=== PATIENT | male | born 1965 | race American Indian/Alaskan Native ===

== ENCOUNTER 2017-03-15 19:01 | Emergency (ER) | payer OTHER ==
[2017-03-15 19:17] VITALS: BP 153/94
[2017-03-15 19:50] LABS: CHLORIDE,CL 100 mmol/L (101-111); SODIUM,NA 139 mmol/L (135-145)
--- NOTE | 2017-03-15 20:26 | EDM.PDOC ---
ED HPI GENERAL MEDICAL PROBLEM - General Chief Complaint: Respiratory Problem Stated Complaint: CHEST HURTING, HARD TO BREATH, [id number] Time Seen by Provider: 03/15/17 19:10 Source of Information: Reports: Patient History Limitations: Reports: No Limitations - History of Present Illness INITIAL COMMENTS - FREE TEXT/NARRATIVE: one week sore throat, cough congestion, hard to breathe at night, body aches non smoker, Fever, last ibuprofen this afternoon. Hx pneumonia in past and feels same. No asthma hx Duration: Getting Worse Location: Reports: Chest Severity: Moderate Associated Symptoms: Reports: Cough, cough w sputum, Fever/Chills, Headaches, Loss of Appetite. Denies: Nausea/Vomiting Generalized Pain Score (Numeric/FACES): 2 - Related Data Allergies Allergy/AdvReac Type Severity Reaction Status Date / Time No Known Allergies Allergy Verified 03/15/17 19:17 Home Meds: Home Meds Ibuprofen 400 mg PO Q6HR PRN 08/01/14 [History] amLODIPine [Norvasc] 1 tab PO DAILY 10/03/15 [History] Past Medical History HEENT History: Reports: Impaired Vision Other HEENT History: left eye has a black spot on the eye, states eye twiches for past bells palsey Cardiovascular History: Reports: Hypertension Respiratory History: Reports: None Gastrointestinal History: Reports: None Genitourinary History: Reports: None Musculoskeletal History: Reports: None Neurological History: Reports: None Psychiatric History: Reports: None Endocrine/Metabolic History: Reports: None Hematologic History: Reports: None Immunologic History: Reports: None Oncologic (Cancer) History: Reports: None Dermatologic History: Reports: None - Infectious Disease History Infectious Disease History: Reports: None - Past Surgical History Head Surgeries/Procedures: Reports: None Other Musculoskeletal Surgeries/Procedures:: broken right leg Social & Family History - Family History Family Medical History: Noncontributory - Tobacco Use Smoking Status *Q: Never Smoker Second Hand Smoke Exposure: No - Caffeine Use Caffeine Use: Reports: Coffee, Soda - Alcohol Use Days Per Week of Alcohol Use: 0 Date of Last Drink: 03/08/17 - Recreational Drug Use Recreational Drug Use: No ED ROS GENERAL - Review of Systems Review Of Systems: See Below Constitutional: Reports: Fever, Chills, Malaise, Decreased Appetite HEENT: Reports: Sinus Problem, Throat Pain Respiratory: Reports: Shortness of Breath (at night when lying down) Cardiovascular: Reports: Chest Pain (after coughing) Endocrine: Reports: Fatigue GI/Abdominal: Reports: No Symptoms : Reports: No Symptoms Musculoskeletal: Reports: Joint Pain, Muscle Pain, Other (generalized "body aches" unable to express if muscular or joint type pain). Denies: Joint Swelling Skin: Reports: No Symptoms Neurological: Reports: Headache (sinus pressure) ED EXAM, GENERAL - Physical Exam Exam: See Below Exam Limited By: No Limitations General Appearance: Alert, Moderate Distress Eye Exam: Bilateral Eye: PERRL Ears: Normal External Exam Throat/Mouth: Normal Lips, Other (enlarged tonsils, thick exudative patches bilaterlly. psterior pallate red). No: Normal Oropharynx Head: Atraumatic, Normocephalic Neck: Normal Inspection, Full Range of Motion Respiratory/Chest: No Respiratory Distress, Lungs Clear, Decreased Breath Sounds (bilateral bases) Cardiovascular: Normal Peripheral Pulses, Regular Rate, Rhythm GI/Abdominal: Normal Bowel Sounds, Soft, Non-Tender Back Exam: Normal Inspection, Full Range of Motion Extremities: Normal Inspection, Normal Range of Motion Neurological: Alert, Oriented, Normal Cognition Psychiatric: Flat Affect Skin Exam: Warm, Dry, Intact, Other (face flushed) Course - Vital Signs Last Recorded V/S: Last Vital Signs Temp 98.8 F 03/15/17 19:07 Pulse 81 03/15/17 19:07 Resp 20 03/15/17 19:07 BP 153/94 H 03/15/17 19:07 Pulse Ox 96 03/15/17 19:07 - Orders/Labs/Meds Orders: Active Orders 24 hr Category Date Time Status EKG 12 Lead [EKG Documentation Completion] [RC] URGENT Care 03/15/17 19:15 Active CULTURE STREP A CONFIRMATION [] Stat Lab 03/15/17 19:38 Results STREP SCRN A RAPID W CULT CONF [] Stat Lab 03/15/17 19:38 Results Labs: Laboratory Tests 03/15/17 03/15/17 03/15/17 Range/Units 19:25 19:25 19:25 WBC 11.1 H (5.0-10.0) 10^3/uL RBC 5.33 (4.6-6.2) 10^6/uL Hgb 17.1 (14.0-18.0) g/dL Hct 49.3 (40.0-54.0) % MCV 92.5 (80-100) fL MCH 32.1 (27.0-34.0) pg MCHC 34.7 (33.0-35.0) g/dL Plt Count 207 (150-450) 10^3/uL Neut % (Auto) 68.2 (42.2-75.2) % Lymph % (Auto) 17.0 L (20.5-50.1) % [place] % (Auto) 11.3 H (2-8) % Eos % (Auto) 3.4 H (1.0-3.0) % Baso % (Auto) 0.1 (0.0-1.0) % PT 10.3 (9.0-12.0) SEC INR 1.0 (0.9-1.2) Sodium 139 (135-145) mmol/L Potassium 4.5 (3.6-5.0) mmol/L Chloride 100 L (101-111) mmol/L Carbon Dioxide 29.0 (21.0-31.0) mmol/L Anion Gap 14.5 BUN 8 (7-18) mg/dL Creatinine 1.0 (0.6-1.3) mg/dL Est Cr Clr Drug Dosing 93.77 mL/min Estimated GFR (MDRD) > 60 BUN/Creatinine Ratio 8.00 Glucose 120 H (74-105) mg/dL Calcium 9.0 (8.4-10.2) mg/dl Total Bilirubin 0.9 (0.2-1.0) mg/dL AST 23 (10-42) IU/L ALT 25 (10-60) IU/L Alkaline Phosphatase 63 (42-121) IU/L Troponin I 0.02 (0.00-0.02) ng/ml B-Natriuretic Peptide 7 (0-100) pg/ml Total Protein 7.6 (6.7-8.2) g/dl Albumin 4.1 (3.2-5.5) g/dl Globulin 3.5 Albumin/Globulin Ratio 1.17 Amylase 27 L (28-100) U/L Lipase 17 L (22-51) U/L Meds: Medications Discontinued Medications Generic Name Dose Route Start Last Admin Trade Name Freq PRN Reason Stop Dose Admin Albuterol Confirm 03/15/17 20:52 03/15/17 20:57 Proventil Hfa Administered 03/15/17 20:53 Not Given Dose 6.7 gm INH .STK-MED ONE Amoxicillin/Clavulanate Potassium 1 tab 03/15/17 20:46 03/15/17 20:57 Augmentin 875 Mg/125 Mg PO 03/15/17 20:47 1 tab ONETIME ONE Administration - Radiology Interpretation Free Text/Narrative:: CXR negative Departure - Departure Time of Disposition: 20:24 Disposition: Home, Self-Care 01 Condition: Fair Clinical Impression: Pharyngitis Qualifiers: Pharyngitis/tonsillitis etiology: unspecified etiology Qualified Code(s): J02.9 - Acute pharyngitis, unspecified - Discharge Information Instructions: Upper Respiratory Infection, Adult, [id number] Referrals: Tom Weaver [Primary Care Provider] - Forms: ED Department Discharge Additional Instructions: albuterol inhaler 2 puffs every 4 hours as needed tesselon pearles 200mg every 8 hours as needed for cough increase fluid intake augmentin 875mg one twice daily for one week alternate tylenol and ibuprofen for fever/ discomfort Follow up next week if not improving, sooner if symptoms worsen - My Orders Last 24 Hours: My Active Orders 03/15/17 19:15 EKG 12 Lead [EKG Documentation Completion] [RC] URGENT 03/15/17 19:38 CULTURE STREP A CONFIRMATION [] Stat STREP SCRN A RAPID W CULT CONF [] Stat - Assessment/Plan Last 24 Hours: My Active Orders 03/15/17 19:15 EKG 12 Lead [EKG Documentation Completion] [RC] URGENT 03/15/17 19:38 CULTURE STREP A CONFIRMATION [RM] Stat STREP SCRN A RAPID W CULT CONF [] Stat
[2017-03-15] MEDS ORDERED: Amoxicillin/Clavulanate K 875-125 MG Tab PO ONE (20:46)
[2017-03-15] MEDS ORDERED: Albuterol 6.7 GM Inhaler INH ONE ×2 (20:52)
--- NOTE | 2017-03-20 09:31 | EKG ---
03/15/2017- PUJA ESPINAL - EKG per my reading shows sinus rhythm at a rate of [address] changes[address] [facility] /[id number]
== END 2017-03-15 21:01 | disposition home or self-care (01) ==
LOC: DL.ED 19:01
DX: J02.9 Acute pharyngitis, unspecified (principal); I10 Essential (primary) hypertension; Z79.899 Other long term (current) drug therapy
CPT/HCPCS: 36415; 71010; 80053; 82150; 83690; 83880; 84484; 85025; 85610; 87081; 87430; 93005; 99285; A9270

== ENCOUNTER 2018-10-08 22:02 | Emergency (ER) | payer BC, OTHER ==
[2018-10-08 22:28] VITALS: BP 142/85
--- NOTE | 2018-10-08 23:36 | EDM.PDOC ---
"ED HPI GENERAL MEDICAL PROBLEM - General Chief Complaint: Head Injury Stated Complaint: HIT BACK OF HEAD ON ICE [id number] Time Seen by Provider: 10/08/18 22:30 Source of Information: Reports: Patient, RN Notes Reviewed History Limitations: Reports: No Limitations - History of Present Illness INITIAL COMMENTS - FREE TEXT/NARRATIVE: ED ambulatory reports slipped and fell Sunday, hit back of head on ice, LOC maybe one minute, witnessed by . Since has been dizzy if moves to fast, mild nausea no vomiting or weakness. No periods of confusion. No report of prior head injuries. No other injuries. Occipital Head Pain Score (Numeric/FACES): 8 - Related Data Allergies Allergy/AdvReac Type Severity Reaction Status Date / Time lisinopril Allergy Cough Verified 10/08/18 22:28 Home Meds: Home Meds amLODIPine Besylate [Amlodipine Besylate] 10 mg PO DAILY 10/08/18 [History] atorvaSTATin [Lipitor] 1 tab PO DAILY 10/08/18 [History] Past Medical History HEENT History: Reports: Impaired Vision Other HEENT History: left eye has a black spot on the eye, states eye twiches for past bells palsey Cardiovascular History: Reports: Hypertension Respiratory History: Reports: None Gastrointestinal History: Reports: None Genitourinary History: Reports: None Musculoskeletal History: Reports: None Neurological History: Reports: None Psychiatric History: Reports: None Endocrine/Metabolic History: Reports: None Hematologic History: Reports: None Immunologic History: Reports: None Oncologic (Cancer) History: Reports: None Dermatologic History: Reports: None - Infectious Disease History Infectious Disease History: Reports: None - Past Surgical History Head Surgeries/Procedures: Reports: None Other Musculoskeletal Surgeries/Procedures:: broken right leg Social & Family History - Family History Family Medical History: Noncontributory - Tobacco Use Smoking Status *Q: Never Smoker - Caffeine Use Caffeine Use: Reports: Coffee - Recreational Drug Use Recreational Drug Use: No ED ROS GENERAL - Review of Systems Review Of Systems: ROS reveals no pertinent complaints other than HPI. ED EXAM, HEAD INJURY - Physical Exam Exam: See Below Exam Limited By: No Limitations General Appearance: Alert, No Apparent Distress Head: Atraumatic, Normocephalic, Scalp Tenderness (mid occipital, no hematoma ) Nexus Criteria: No: Posterior, Midline Cervical Tenderness, Evidence of Intoxication, Altered Level of Consciousness, Focal Neurological Deficit, Painful Distraction Injuries Eyes: Bilateral Eye: EOMI, Normal Fundi, Nystagmus (midline with rapid eye movment), PERRL (4mm) Ears: Normal External Exam, Normal Canal, Normal TMs. No: Mastoid Tenderness Nose: Normal Inspection Throat/Mouth: Normal Inspection Neck: Tender Lateral. No: Spinous Processes Tender, Tender Midline Respiratory: No Respiratory Distress, Lungs Clear, Normal Breath Sounds Cardiovascular: Normal Peripheral Pulses, Regular Rate, Rhythm GI/Abdominal Exam: Soft Back Exam: Full Range of Motion Extremities: Normal Inspection, Normal Range of Motion Neurologic: No Motor/Sensory Deficits, Alert, Normal Mood/Affect, Oriented x 3. No: Abnormal Gait, Motor Weakness Skin: Normal Color, Warm/Dry - [place] Coma Score Best Eye Response ([place]): (4) Open Spontaneously Best Verbal Response ([place]): (5) Oriented Best Motor Response ([place]): (6) Obeys Commands Course - Vital Signs Last Recorded V/S: Last Vital Signs Temp 98.3 F 10/08/18 22:22 Pulse 71 10/08/18 22:22 Resp 14 10/08/18 22:22 BP 142/85 H 10/08/18 22:22 Pulse Ox 98 10/08/18 22:22 - Orders/Labs/Meds Orders: Active Orders 24 hr Category Date Time Status Cervical Spine wo Cont [CT] Urgent Exams 10/08/18 22:25 Taken Head wo Cont [CT] Urgent Exams 10/08/18 22:25 Taken - Radiology Interpretation Free Text/Narrative:: Name: PUJA ESPINAL Age: 53Years M Date: 10/08/2018 SSN: -- : [id number] Study: CT SPINE CERVICAL WO Requesting Physician: NIKOLAS PUENTES Images: 284 Addl Studies: Provided Clinical History: Contrast: Without Contrast Medium: Contrast Amount: Contrast Method: Page 1 of 2 EXAM: CT Cervical Spine Without Contrast EXAM DATE/TIME: 10/08/2018 10:33 PM CLINICAL HISTORY: 53 years old, male; Injury or trauma; Fall; Initial encounter; Blunt trauma TECHNIQUE: Axial computed tomography images of the cervical spine without intravenous contrast. All CT scans at this facility use at least one of these dose optimization techniques: automated exposure control; mA and/or kV adjustment per patient size (includes targeted exams where dose is matched to clinical indication); or iterative reconstruction. Coronal and sagittal reformatted images were created and reviewed. COMPARISON: No relevant prior studies available. FINDINGS: Vertebrae: No acute fracture. Normal alignment. Soft tissues: Unremarkable. Lungs: Lung apices are normal. IMPRESSION: No acute findings. Thank you for allowing us to participate in the care of your patient. [facility] [place] [facility] Final Radiology Report Call: [phone] assistance Online chat: [email or web address] Name: PUJA ESPINAL Age: 53Years M Date: 10/08/2018 SSN: -- : [id number] Study: CT HEAD WO Requesting Physician: NIKOLAS PUENTES Images: [id number] Addl Studies: Provided Clinical History: Contrast: Without Contrast Medium: Contrast Amount: Contrast Method: Page 1 of 2 EXAM: CT Head Without Contrast EXAM DATE/TIME: 10/08/2018 10:33 PM CLINICAL HISTORY: 53 years old, male; Injury or trauma; Fall; Initial encounter; Blunt trauma ( contusions or hematomas); With loss of consciousness; Loss of consciousness for 30 minutes or less; Patient HX: Fell on ice hit back of head TECHNIQUE: Axial computed tomography images of the head/brain without contrast. All CT scans at this facility use at least one of these dose optimization techniques: automated exposure control; mA and/or kV adjustment per patient size (includes targeted exams where dose is matched to clinical indication); or iterative reconstruction. Coronal and sagittal reformatted images were created and reviewed. COMPARISON: CT Head wo Cont 07/14/2016 11:38 AM FINDINGS: Brain: Normal. No hemorrhage. No significant white matter disease. No edema. Ventricles: Normal. No ventriculomegaly. Bones/joints: There is old left medial orbital wall fracture. Sinuses: Visualized sinuses are unremarkable. No acute sinusitis. Mastoid air cells: Visualized mastoid air cells are unremarkable. No mastoid effusion. Soft tissues: Unremarkable. IMPRESSION: No acute intracranial process. PUJA ESPINAL | Final Radiology Report CONFIDENTIALITY STATEMENT This report is intended only for use by the referring physician, and only in accordance with law. If you received this in error, call [phone]. Page 2 of 2 Thank you for allowing us to participate in the care of your patient. Dictated and Authenticated by: Oskar Goetz MD 10/08/2018 10:59 PM Central Time ([place] & [place]) Departure - Departure Time of Disposition: 23:21 Disposition: Home, Self-Care 01 Condition: Good Clinical Impression: Concussion injury of brain - Discharge Information *PRESCRIPTION DRUG MONITORING PROGRAM REVIEWED*: Not Applicable Instructions: Concussion, Adult, Post-Concussion Syndrome, [id number] Additional Instructions: rest, gradual advance in activity follow up if weakness, confusion tylenol every 4 hours as needed for discomfort - My Orders Last 24 Hours: My Active Orders 10/08/18 22:25 Cervical Spine wo Cont [CT] Urgent Head wo Cont [CT] Urgent - Assessment/Plan Last 24 Hours: My Active Orders 10/08/18 22:25 Cervical Spine wo Cont [CT] Urgent Head wo Cont [CT] Urgent"
== END 2018-10-08 23:28 | disposition home or self-care (01) ==
LOC: DL.ED 22:02
DX: S06.0X1A Concussion with loss of consciousness of 30 minutes or less, initial encounter (principal); I10 Essential (primary) hypertension; W00.0XXA Fall on same level due to ice and snow, initial encounter; Z88.8 Allergy status to other drugs, medicaments and biological substances; Z79.899 Other long term (current) drug therapy
CPT/HCPCS: 70450; 72125; 99284-25

== ENCOUNTER 2022-07-24 00:03 | Emergency (ER) | payer BC, OTHER ==
[2022-07-24] MEDS ORDERED: Sodium Chloride 0.9% 10 ML Syringe FLUSH PRN (00:27)
[2022-07-24] MEDS ORDERED: Iopamidol 612 MG/ML 100 ML Bottle IVPUSH ONE (00:27)
[2022-07-24] MEDS ORDERED: Sodium Chloride 0.9% 1,000 ML IV ONE (00:33)
[2022-07-24] MEDS ORDERED: Morphine 2 MG/ML SYRINGE IVPUSH ONE (00:34)
[2022-07-24 01:01] LABS: ANION GAP 15.1 mEq/L (7-13)
[2022-07-24 01:21] LABS: CORONAVIRUS COVID-19 NAA NEGATIVE (NEGATIVE); RESPIRATORY SYNCYTIAL VIR NAA NEGATIVE (NEGATIVE)
[2022-07-24 01:54] LABS: AMPHETAMINES,URINE NEGATIVE (NEGATIVE); BARBITURATES,URINE NEGATIVE (NEGATIVE); BENZODIAZEPINE,URINE NEGATIVE (NEGATIVE); MDMA (ECSTASY), URINE NEGATIVE (NEGATIVE); METHADONE,URINE NEGATIVE (NEGATIVE); METHAMPHETAMINES,URINE NEGATIVE (NEGATIVE); OPIATES,URINE POSITIVE (NEGATIVE); OXYCODONE,URINE NEGATIVE (NEGATIVE); PHENCYCLIDINE,URINE NEGATIVE (NEGATIVE); TCA,URINE NEGATIVE (NEGATIVE)
[2022-07-24] MEDS ORDERED: Piperacillin/Tazobactam 3.375 GM in Sodium Chloride 0.9% 100 ML IV ONE (02:07)
[2022-07-24] MEDS ORDERED: Ketorolac 30 MG/ML SDV IVPUSH ONE (02:07)
[2022-07-24 02:34] VITALS: BP 150/86; PULSE 54
== END 2022-07-24 03:03 ==
LOC: DL.ED 00:03
DX: K81.0 Acute cholecystitis (principal); I10 Essential (primary) hypertension; Z88.8 Allergy status to other drugs, medicaments and biological substances; Z79.899 Other long term (current) drug therapy; Z20.822 Contact with and (suspected) exposure to COVID-19
CPT/HCPCS: 0241U; 36415; 74177; 80053; 80305; 81003; 83605; 83690; 84484; 85025; 96365; 96375; 99285; J1885; J2270; J2543; J3490; J7030; Q9967

== ENCOUNTER 2023-02-06 22:09 | Emergency (ER) | payer BC, OTHER ==
[2023-02-06] MEDS ORDERED: Penicillin G Benzathine/Procaine 600-600 1.2 Millunits/2 ML Syringe IM ONE (22:42)
[2023-02-06 22:45] VITALS: BP 152/90; PULSE 78
== END 2023-02-06 23:05 | disposition home or self-care (01) ==
LOC: DL.ED 22:09
DX: J02.9 Acute pharyngitis, unspecified (principal); I10 Essential (primary) hypertension; Z79.899 Other long term (current) drug therapy
CPT/HCPCS: 96372; 99282; J0558